=== PATIENT | female | born 1990 | race Caucasian/White ===

== ENCOUNTER 2017-08-31 22:01 | Emergency (ER) | payer OTHER ==
[~2017-08-31 22:01] MED LIST: AUGMENTIN 875 M1 TAB PO; BENTYL20 MG PO; CIPRO 500MG (E500 MG PO; CIPRO500 M1 PO; FLONASE120 SPRAY/ NASB; MOTRIN800 MG PO; PERCOCET 5-3251 EACH PO; PROAIR HFA8.5 GM INH; ROBITUSSIN W/CO10 ML PO; TESSALON PERLE100 M1 PO; ZITHROMAX250 M2 PO; ZOFRAN ODT4 MG PO
[2017-08-31 22:14] VITALS: BP 143/90
[2017-08-31 22:42] LABS: ABSOLUTE BASOPHIL COUNT 0 /CUMM (0.0-0.2); ABSOLUTE EOSINOPHIL COUNT 0.3 /CUMM (0.0-0.7); ABSOLUTE GRANULOCYTE CT 4.5 /CUMM (1.4-6.5); ABSOLUTE LYMPH COUNT 2.4 /CUMM (1.2-3.4); ABSOLUTE MONOCYTE COUNT 0.5 /CUMM (0.10-0.60); BASOPHIL % 0.6 % (0.0-2.0); EOSINOPHIL % 3.5 % (0-5); GRANULOCYTE % 58.2 % (42.2-75.2); HEMATOCRIT 41.8 % (37-47); MEAN CORPUSCULAR HGB 27.7 PG (27.0-31.0); MEAN CORPUSCULAR VOLUME 78.9 FL (81.0-99.0); MEAN PLATELET VOLUME 7.7 FL (7.4-10.4); PLATELET COUNT 342 /CUMM (130-400); RBC DISTRIBUTION WIDTH 13.2 % (11.5-14.5); RED BLOOD CELL CT 5.29 /CUMM (4.20-5.40); WHITE BLOOD CELL COUNT 7.7 /CUMM (4.8-10.8)
--- NOTE | 2017-08-31 23:06 | ED CARDIAC/CP/PALPITATIONS ---
History of Present Illness General Chief Complaint: Chest Pain Stated Complaint: CP AND SOB Source: patient Exam Limitations: no limitations Vital Signs & Intake/Output Vital Signs & Intake/Output Vital Signs Date Time Temp Pulse Resp B/P B/P Pulse O2 O2 Flow FiO2 Mean Ox Delivery Rate 08/31 2312 100 Room Air 08/31 2213 96 24 143/90 97 Allergies Coded Allergies: Sulfa (Sulfonamide Antibiotics) (RASH 09/13/15) latex (HIVES 09/13/15) morphine (SHAKES, HIVES 09/13/15) Triage Note: PER PT CP AND SOB ALL DAY SINCE AM, WORSE WITH INSPIRATION, PER PT 12/26 NO NV NOTED PT HAS IMPLANTABLE CONTROL AND ONLY SPOTS MONTHLY LAST PERIOD END OF JUL : No Patient currently breastfeeds: No (Derek BOWEN,Rosendo Davila) Reconcile Medications Albuterol Sulfate (Proair Hfa) 90 MCG HFA.AER.AD 2 PUF INH Q4-6 PRN PRN BRONCHITIS Azithromycin (Zithromax) 250 MG TABLET 1 DP PO AD BRONCHITIS 2 the first day followed by 1 for days 2-5 Benzonatate 100 MG CAPSULE 1-2 CAP PO Q4 SHORTNESS OF BREATH (Reported) Benzonatate (Tessalon Perle) 100 MG CAPSULE 1 CAP PO TID PRN COUGH Ciprofloxacin HCl (Cipro) 500 MG TABLET 1 TAB PO BID uti Oxycodone HCl/Acetaminophen (Percocet 5-325 MG Tablet) 1 EACH TABLET 1 TAB PO Q6HR PRN PAIN (Rosalind BOWEN,Guille Desai) Past History Travel History Traveled to [place] past 21 day No Medical History Neurological: NONE EENT: NONE Cardiovascular: NONE Respiratory: NONE Gastrointestinal: NONE Hepatic: NONE Renal: NONE Musculoskeletal: NONE Psychiatric: NONE Endocrine: NONE Blood Disorders: NONE Cancer(s): NONE LOT WORKER/Reproductive: OVARIAN CYST Surgical History Surgical History: Psychosocial History What is your primary language Martiniquais Tobacco Use: Current Not Daily Daily Tobacco Use Amount/Type: =< 4 Cigarettes daily (Derek BOWEN,Rosendo Davila) Progress Plan of Care: Orders Procedure Date/time Status TROPONIN LEVEL 08/31 2214 Complete HUMAN BETA HCG SCREEN 08/31 2214 Complete D-DIMER 08/31 2214 Complete COMPREHENSIVE METABOLIC PANEL 08/31 2214 Complete CBC WITHOUT DIFFERENTIAL 08/31 2214 Complete EKG 02/13 2202 Active Laboratory Tests 02/13/18 2230: Anion Gap 12, Estimated GFR > 60, BUN/Creatinine Ratio 8.8, Glucose 78, Calcium 9.6, Total Bilirubin 1.0, AST 15, ALT 30, Alkaline Phosphatase 62, Troponin I < 0.01, Total Protein 7.6, Albumin 4.8, Globulin 2.8, Albumin/Globulin Ratio 1.7, Total Beta HCG NEGATIVE, D-Dimer High Sensitivty < 200, CBC w Diff NO MAN DIFF REQ, RBC 5.29, MCV 78.9 L, MCH 27.7, MCHC 35.0, RDW 13.2, MPV 7.7, Gran % 58.2, Lymphocytes % 31.7, Monocytes % 6.0, Eosinophils % 3.5, Basophils % 0.6, Absolute Granulocytes 4.5, Absolute Lymphocytes 2.4, Absolute Monocytes 0.5, Absolute Eosinophils 0.3, Absolute Basophils 0 (Derek BOWEN,Rosendo Davila) Departure Departure Condition: Stable Referrals: Paige Rizo DO (PCP/Family) Departure Forms: Customer Survey General Discharge Information (Derek BOWEN,Rosendo Davila)
[2017-08-31] MEDS ORDERED: BENZONATATE100 M1 PO (23:16)
== END 2017-08-31 23:56 | disposition admitted as inpatient to this hospital (09) ==
LOC: ERH 22:01
PROVIDERS: Emergency Medicine
DX: R07.9 Chest pain, unspecified (principal); R06.02 Shortness of breath
CPT/HCPCS: 93005; 93010; 99281

== ENCOUNTER 2017-09-01 18:43 | Emergency (ER) | payer OTHER ==
[~2017-09-01] VITALS: Ht 152.4 cm; Wt 81.6 kg
[~2017-09-01 18:43] MED LIST changes: +BENZONATATE100 M1 PO
[2017-09-01 18:54] VITALS: BP 150/90
--- NOTE | 2017-09-01 19:45 | ED GI/GU/ABDOMINAL COMPLAINT ---
History of Present Illness General Chief Complaint: Abdominal Pain/Flank Pain Stated Complaint: R ABD PAIN +N Source: patient, family, old records Exam Limitations: no limitations Vital Signs & Intake/Output Vital Signs & Intake/Output Vital Signs Date Time Temp Pulse Resp B/P B/P Pulse O2 O2 Flow FiO2 Mean Ox Delivery Rate 09/01 1854 97.5 79 18 150/90 98 Room Air Allergies Coded Allergies: Sulfa (Sulfonamide Antibiotics) (RASH 09/13/15) latex (HIVES 09/13/15) morphine (SHAKES, HIVES 09/13/15) Reconcile Medications Albuterol Sulfate (Proair Hfa) 90 MCG HFA.AER.AD 2 PUF INH Q4-6 PRN PRN BRONCHITIS Azithromycin (Zithromax) 250 MG TABLET 1 DP PO AD BRONCHITIS 2 the first day followed by 1 for days 2-5 Benzonatate 100 MG CAPSULE 1-2 CAP PO Q4 SHORTNESS OF BREATH (Reported) Benzonatate (Tessalon Perle) 100 MG CAPSULE 1 CAP PO TID PRN COUGH Ciprofloxacin HCl (Cipro) 500 MG TABLET 1 TAB PO BID uti Oxycodone HCl/Acetaminophen (Percocet 5-325 MG Tablet) 1 EACH TABLET 1 TAB PO Q6HR PRN PAIN Triage Note: PT STATES SHE HAS BEEN HAVING LOWER RIGHT ABD PAIN SINCE 1500 TODAY. PT STATES SHE MOVED HER BOWELS THINKING IT MAY MAKE HER FEEL BETTER BUT IT MADE IT WORSE. PT DENIES FEVERS Triage Nurses Notes Reviewed? yes ? N Is pt currently ? No Onset: Abrupt Duration: hour(s): (6) Timing: no prior history Quality/Severity: sharpness Severity Numbers: 7 Location: right lower quadrant Radiation: no radiation Activities at Onset: none Prior Abdominal Problems: none Past Sexual History: Unobtainable at this time No Modifying Factors: none HPI: Patient is a 26-year-old female presenting to the emergency department with chief complaint of right lower quadrant pain that started suddenly around 3 PM this afternoon. Pain is sharp and stabbing and nonradiating. Patient denies any nausea or vomiting. Denies taking anything for pain prior to arrival. Denies any urinary frequency or urgency or dysuria. No hematuria. No recent travel. No recent antibiotics. No history of similar symptoms in the past. Nothing seems to make it better or worse. (Tanya Mota) Past History Travel History Traveled to [place] past 21 day No Medical History Any Pertinent Medical History? see below for history Neurological: NONE EENT: NONE Cardiovascular: NONE Respiratory: NONE Gastrointestinal: NONE Hepatic: NONE Renal: NONE Musculoskeletal: NONE Psychiatric: NONE Endocrine: NONE Blood Disorders: NONE Cancer(s): NONE PROGRAM ADVISOR/Reproductive: OVARIAN CYST Surgical History Surgical History: Psychosocial History What is your primary language Upper Sorbian Tobacco Use: Current Not Daily Daily Tobacco Use Amount/Type: =< 4 Cigarettes daily ETOH Use: denies use Illicit Drug Use: denies illicit drug use Family History Hx Contributory? No (Tanya Mota) Review of Systems Review of Systems Constitutional: Reports: no symptoms. Comments Review of systems: See HPI, All other systems negative. Constitutional, no chills fever or weight loss HEENT: No visual changes no sore throat no congestion Cardiovascular: No chest pain ,palpitation Skin, no jaundice no rashes Respiratory: No dyspnea cough sputum or hemoptysis GI: No nausea no vomiting : No dysuria No hematuria Muscle skeletal: no back pain, no neck pain, Neurologic: No numbness no confusion Psych: No stress anxiety or depression,. Heme/endocrine: No bruising no bleeding no polyuria or polydipsia Immunology: No splenectomy or history of AIDS (Tanya Mota) Physical Exam Physical Exam General Appearance: well developed/nourished, no apparent distress, alert, awake , comfortable, APPEARS UNCOMFORTABLE. Gastrointestinal: normal bowel sounds, soft, tenderness Comments: Well-developed well-nourished person in no acute distress HEENT: Atraumatic, normocephalic Neck: Normal inspection Back: Nontender, no CVA tenderness. Cardiovascular: Regular rate and rhythms no murmurs rubs or gallops, normal JVP Respiratory: Chest nontender. No respiratory distress.breath sounds clear to auscultation bilaterally Abdomen: Soft, moderate tenderness to palpation in the right lower quadrant, no guarding or rebound tenderness, nondistended, no appreciable organomegaly. Normal bowel sounds. No ascites Extremity: No edema Neuro: Alert oriented x3 Skin: No appreciable rash on exposed skin, skin is warm and dry. Psych: Mood and affect is normal, memory and judgment is normal. Core Measures ACS in differential dx? No Sepsis Present: No Sepsis Focused Exam Completed? No (Juan Motaa) Progress Differential Diagnosis: appendicitis, biliary colic, cholecystitis, gastritis, hepatitis, ovarian cyst, ovarian torsion, UTI/pyelo Plan of Care: Orders Procedure Date/time Status Add-on Test (ER Only) 09/01 2132 Active CULTURE,URINE 09/01 2104 Active LACTIC ACID 09/01 1932 Complete URINE 09/01 1846 Complete URINALYSIS 09/01 1846 Complete C-REACTIVE PROTEIN 09/01 1846 Complete COMPREHENSIVE METABOLIC PANEL 09/01 1846 Complete CBC WITHOUT DIFFERENTIAL 09/01 1846 Complete Laboratory Tests 09/01/172232: Lactic Acid Cancelled 09/01/172104: Urine Color YEL, Urine Clarity CLEAR, Urine pH 6.0, Ur Specific [place] 1.020, Urine Protein NEG, Urine Ketones NEG, Urine Nitrite NEG, Urine Bilirubin NEG, Urine Urobilinogen 1.0, Ur Leukocyte Esterase NEG, Ur Microscopic SEDIMENT EXAMINED, Urine RBC 1-3, Urine WBC 1-3 H, Ur Epithelial Cells FEW, Urine Bacteria RARE H, Urine Mucus RARE, Urine Hemoglobin LARGE H, Urine Glucose NEG , Urine Test NEGATIVE 09/01/17 2012: Lactic Acid 0.8 09/01/17 2012: Anion Gap 14, Estimated GFR > 60, BUN/Creatinine Ratio 15.0, Glucose 91, Calcium 9.7, Total Bilirubin 0.8, AST 13 L, ALT 24, Alkaline Phosphatase 70, C-Reactive Prot, Quant 1.4 H, Total Protein 7.6, Albumin 4.7, Globulin 2.9, Albumin/ Globulin Ratio 1.6, CBC w Diff NO MAN DIFF REQ, RBC 5.17, MCV 80.3 L, MCH 27.2, MCHC 33.9, RDW 13.2, MPV 7.7, Gran % 68.9, Lymphocytes % 22.5, Monocytes % 4.7, Eosinophils % 3.5, Basophils % 0.4, Absolute Granulocytes 5.8, Absolute Lymphocytes 1.9, Absolute Monocytes 0.4, Absolute Eosinophils 0.3, Absolute Basophils 0 Microbiology 09/01 2104 URINE ROUT: Urine Culture - RECD Diagnostic Imaging: Viewed by Me: CT Scan. Discussed w/RAD: CT Scan. Radiology Impression: PATIENT: DENICE SULLIVAN PRESENT AGE: 26 PATIENT ACCOUNT NO: [id number] : 90 LOCATION: [facility] ORDERING PHYSICIAN: Tanya VERAS SERVICE DATE: 09/01/17 EXAM TYPE: CAT - CT ABD & PELVIS W IV CONTRAST EXAMINATION: CT ABDOMEN AND PELVIS WITH CONTRAST CLINICAL INFORMATION: Right lower quadrant pain. COMPARISON: 12/23. TECHNIQUE: Contiguous axial thin section helical images of the abdomen and pelvis were performed following the administration of 95 mL of intravenous Optiray 320. The data set was reformatted in the coronal and sagittal planes and reviewed on an independent workstation. DLP: 402 mGy-cm. FINDINGS: The visualized lung bases are clear. The visualized portions of the heart are unremarkable. The liver is of normal size and attenuation without focal lesions nor intrahepatic biliary ductal dilation. A normal gallbladder is identified. There is no wall thickening or discernible pericholecystic fluid. The spleen, pancreas, adrenal glands are unremarkable. Both kidneys are of normal size and attenuation without hydronephrosis or nephrolithiasis. Following the administration of IV contrast, prompt symmetric nephrograms are displayed. There is no abdominal free fluid. There is neither mesenteric nor retroperitoneal lymphadenopathy. Normal unopacified loops of small and large bowel are identified. A normal appendix is identified. There is no pelvic free fluid. The urinary bladder is unremarkable. An IUD is in appropriate position. There is neither pelvic nor inguinal lymphadenopathy. Bone windows: Neither sclerotic nor lytic bone lesions are identified. IMPRESSION: No evidence for acute abdominal or pelvic inflammatory or infectious processes. Specifically, a normal appendix is identified. DICTATED BY: Simon Rendon MD DATE/TIME DICTATED:09/01/172040 JET WORKER:TERESA DATE/TIME TRANSCRIBED:09/01/172040 CONFIDENTIAL, DO NOT COPY WITHOUT APPROPRIATE AUTHORIZATION. <Electronically signed in Other Vendor System> SIGNED BY: Simon Rendon MD 09/01/172048 Initial ED EKG: none (Silvio VERAS,Tanya) Departure Departure Time of Disposition: 2141 Disposition: HOME OR SELF CARE Condition: Stable Clinical Impression Primary Impression: Abdominal pain Qualifiers: Abdominal location: right lower quadrant Qualified Code: R10.31 - Right lower quadrant pain Secondary Impressions: Hematuria Qualifiers: Hematuria type: unspecified type Qualified Code: R31.9 - Hematuria, unspecified Referrals: Paige Rizo DO (PCP/Family) Additional Instructions: Follow-up with your primary care physician in the next 24 hours return for worsening symptoms or concerns. Take [id number] Motrin or Tylenol as directed. Increase fluids. There is a chance that you may have passed a kidney stone as there is nothing seen on CAT scan. Patches a copy of your CAT scan report. She follow-up with your primary care physician regarding any possible incidental findings. PATIENT: DENICE SULLIVAN PRESENT AGE: 26 PATIENT ACCOUNT NO: [id number] : 90 LOCATION: [facility] ORDERING PHYSICIAN: Tanya VERAS SERVICE DATE: 09/01/17 EXAM TYPE: CAT - CT ABD & PELVIS W IV CONTRAST EXAMINATION: CT ABDOMEN AND PELVIS WITH CONTRAST CLINICAL INFORMATION: Right lower quadrant pain. COMPARISON: 12/24/2015. TECHNIQUE: Contiguous axial thin section helical images of the abdomen and pelvis were performed following the administration of 95 mL of intravenous Optiray 320. The data set was reformatted in the coronal and sagittal planes and reviewed on an independent workstation. DLP: 402 mGy-cm. FINDINGS: The visualized lung bases are clear. The visualized portions of the heart are unremarkable. The liver is of normal size and attenuation without focal lesions nor intrahepatic biliary ductal dilation. A normal gallbladder is identified. There is no wall thickening or discernible pericholecystic fluid. The spleen, pancreas, adrenal glands are unremarkable. Both kidneys are of normal size and attenuation without hydronephrosis or nephrolithiasis. Following the administration of IV contrast, prompt symmetric nephrograms are displayed. There is no abdominal free fluid. There is neither mesenteric nor retroperitoneal lymphadenopathy. Normal unopacified loops of small and large bowel are identified. A normal appendix is identified. There is no pelvic free fluid. The urinary bladder is unremarkable. An IUD is in appropriate position. There is neither pelvic nor inguinal lymphadenopathy. Bone windows: Neither sclerotic nor lytic bone lesions are identified. IMPRESSION: No evidence for acute abdominal or pelvic inflammatory or infectious processes. Specifically, a normal appendix is identified. DICTATED BY: Simon Rendon MD DATE/TIME DICTATED:09/01/172040 JET WORKER:TERESA DATE/TIME TRANSCRIBED:09/01/172040 CONFIDENTIAL, DO NOT COPY WITHOUT APPROPRIATE AUTHORIZATION. <Electronically signed in Other Vendor System> SIGNED BY: Simon Rendon MD 09/01/172048 Departure Forms: Customer Survey General Discharge Information (Tanya Mota) PA/PUTAWAY DRIVER Co-Sign Statement Statement: ED Attending supervision documentation- [] I saw and evaluated the patient. I have also reviewed all the pertinent lab results and diagnostic results. I agree with the findings and the plan of care as documented in the PA's/PUTAWAY DRIVER's documentation. [X] I have reviewed the ED Record and agree with the PA's/PUTAWAY DRIVER's documentation. [] Additions or exceptions (if any) to the PAs/PUTAWAY DRIVER's note and plan are summarized below: [] (Simón BOWEN,Isrrael Rivero)
[2017-09-01 20:26] LABS: ABSOLUTE BASOPHIL COUNT 0 /CUMM (0.0-0.2); ABSOLUTE EOSINOPHIL COUNT 0.3 /CUMM (0.0-0.7); ABSOLUTE GRANULOCYTE CT 5.8 /CUMM (1.4-6.5); ABSOLUTE LYMPH COUNT 1.9 /CUMM (1.2-3.4); ABSOLUTE MONOCYTE COUNT 0.4 /CUMM (0.10-0.60); BASOPHIL % 0.4 % (0.0-2.0); EOSINOPHIL % 3.5 % (0-5); GRANULOCYTE % 68.9 % (42.2-75.2); HEMATOCRIT 41.5 % (37-47); MEAN CORPUSCULAR HGB 27.2 PG (27.0-31.0); MEAN CORPUSCULAR HGB CONC 33.9 G/DL (33.0-37.0); MEAN CORPUSCULAR VOLUME 80.3 FL (81.0-99.0); MEAN PLATELET VOLUME 7.7 FL (7.4-10.4); PLATELET COUNT 319 /CUMM (130-400); RBC DISTRIBUTION WIDTH 13.2 % (11.5-14.5); RED BLOOD CELL CT 5.17 /CUMM (4.20-5.40); WHITE BLOOD CELL COUNT 8.4 /CUMM (4.8-10.8)
--- NOTE | 2017-09-01 20:49 | CT SCAN REPORT ---
EXAMINATION: CT ABDOMEN AND PELVIS WITH CONTRAST CLINICAL INFORMATION: Right lower quadrant pain. COMPARISON: 12/24/2015. TECHNIQUE: Contiguous axial thin section helical images of the abdomen and pelvis were performed following the administration of 95 mL of intravenous Optiray 320. The data set was reformatted in the coronal and sagittal planes and reviewed on an independent workstation. DLP: 402 mGy-cm. FINDINGS: The visualized lung bases are clear. The visualized portions of the heart are unremarkable. The liver is of normal size and attenuation without focal lesions nor intrahepatic biliary ductal dilation. A normal gallbladder is identified. There is no wall thickening or discernible pericholecystic fluid. The spleen, pancreas, adrenal glands are unremarkable. Both kidneys are of normal size and attenuation without hydronephrosis or nephrolithiasis. Following the administration of IV contrast, prompt symmetric nephrograms are displayed. There is no abdominal free fluid. There is neither mesenteric nor retroperitoneal lymphadenopathy. Normal unopacified loops of small and large bowel are identified. A normal appendix is identified. There is no pelvic free fluid. The urinary bladder is unremarkable. An IUD is in appropriate position. There is neither pelvic nor inguinal lymphadenopathy. Bone windows: Neither sclerotic nor lytic bone lesions are identified. IMPRESSION: No evidence for acute abdominal or pelvic inflammatory or infectious processes. Specifically, a normal appendix is identified.
== END 2017-09-01 21:51 ==
LOC: ERH 18:43
PROVIDERS: Physician Assistant Medical
DX: R10.31 Right lower quadrant pain (principal); R31.9 Hematuria, unspecified
CPT/HCPCS: 74177; 81001; 81025; 87086; 96374; J1885